=== PATIENT | female | born 1990 | race Caucasian/White ===

== ENCOUNTER 2021-04-01 18:04 | Emergency (ER) | payer MEDICAID, OTHER ==
[~2021-04-01] VITALS: Ht 157.5 cm; Wt 102.1 kg
[2021-04-01 20:15] VITALS: BP 140/86
== END 2021-04-01 20:20 | disposition home or self-care (01) ==
LOC: ER 18:04
DX: R07.0 Pain in throat (principal); I10 Essential (primary) hypertension
CPT/HCPCS: 70360